=== PATIENT | female | born 1970 | race Caucasian/White ===

== ENCOUNTER 2025-05-31 10:54 | Emergency (ER) | payer BC ==
[~2025-05-31] VITALS: Ht 165.1 cm; Wt 84.0 kg
[2025-05-31] MEDS ORDERED: SEMA0.258 (11:03)
[2025-05-31] MEDS ORDERED: VANC250C12 MT (11:03)
[2025-05-31] MEDS ORDERED: METF-1150 PO (11:03)
[2025-05-31 11:42] LABS: BASOPHILS % 0.4 % (0.0-2.0); EOSINOPHILS % 7.8 % (0.0-5.0); HEMATOCRIT. 37.0 % (36.0-48.0); HEMOGLOBIN. 12.3 g/dL (12.0-16.0); LYMPHOCYTES % 16.7 % (20.0-50.0); MEAN PLATELET VOLUME 8.0 fl (7.4-10.4); MONOCYTES % 3.2 % (2.0-8.0); NEUTROPHILS % 71.9 % (40.0-76.0); PLATELET 384 x1000/uL (130-400); RED BLOOD CELL COUNT 4.33 mill/uL (4.2-5.4); RED CELL DISTRIBUTION WIDTH 13.5 % (11.6-14.6)
[2025-05-31] MEDS: PANTOPRAZOLE SODIUM 40 MG/VIAL IV ONE (11:46)
[2025-05-31] MEDS: ONDANSETRON HCL 4MG/2ML INJ IV ONE (11:46)
[2025-05-31] MEDS: MORPHINE SULFATE 4 MG/ML INJ (FOR IV/IM USE) IV ONE (11:47)
[2025-05-31 11:51] LABS: INR 0.9
[2025-05-31 11:56] LABS: CREATININE 0.7 mg/dL (0.6-1.0); UREA NITROGEN BLOOD 10 mg/dL (9-23)
[2025-05-31] MEDS: SODIUM CHLORIDE 0.9% 1,000 ML IV ONE (11:57)
[2025-05-31 11:58] LABS: ASPARTATE AMINOTRANSFERASE 269 IU/L (<34)
[2025-05-31 11:59] LABS: BILIRUBIN DIRECT 0.2 mg/dL (<=3.0); BILIRUBIN TOTAL 0.6 mg/dL (0.1-1.0); PROTEIN TOTAL 6.8 g/dL (6.0-8.3)
[2025-05-31] MEDS: MORPHINE SULFATE 2 MG/ML INJ (NOT FOR IM USE) IV ONE (12:03)
[2025-05-31] MEDS ORDERED: SUCRALFATE 1G TABLET PO SCH (13:00)
[2025-05-31] MEDS: SUCRALFATE 1G TABLET PO SCH (13:12)
[2025-05-31 13:43] VITALS: TEMP 36.7
[2025-05-31 13:59] LABS: CLARITY URINE CLOUDY (CLEAR); COLOR URINE YELLOW (YELLOW); GLUCOSE URINE NEGATIVE (NEGATIVE); KETONES URINE NEGATIVE (NEGATIVE); LEUKOCYTE ESTERASE URINE 1+ (NEGATIVE); NITRITE URINE POSITIVE (NEGATIVE); OCCULT BLOOD URINE TRACE (NEGATIVE); PH URINE 7.5 (4.5-8.0); PROTEIN URINE NEGATIVE (NEGATIVE); SPECIFIC GRAVITY URINE 1.009 (1.005-1.030); UROBILINOGEN URINE 0.2 E.U./dL (0.2-1.0)
[2025-05-31] MEDS: KETOROLAC 15MG/ML VIAL IV ONE (14:23)
[2025-05-31] MEDS: CEFTRIAXONE 1GM/50ML 50 ML IV ONE (14:24)
[2025-05-31] MEDS ORDERED: CEFP200T13 MT (14:37)
[2025-05-31] MEDS ORDERED: SUCR1TAB30 MT (14:37)
[2025-05-31] MEDS ORDERED: PANT20TA17 MT (14:39)
[2025-05-31 14:48] LABS: SQUAMOUS EPITHELIAL CELL URINE 3+ /lpf (RARE/1+)
[2025-05-31 14:50] LABS: BACTERIA URINE 2+; RBC URINE 0-2 /hpf (0-2)
[2025-05-31] MEDS: DIAZEPAM 2 MG TABLET PO ONE (15:15)
[2025-05-31 15:20] VITALS: BP 112/68; PULSE 78; RESP 19; O2SAT 98
== END 2025-05-31 15:25 | disposition home or self-care (01) ==
LOC: ER 10:54
DX: N39.0 Urinary tract infection, site not specified (principal); K27.9 Peptic ulcer, site unspecified, unspecified as acute or chronic, without hemorrhage or perforation; E11.9 Type 2 diabetes mellitus without complications; E83.42 Hypomagnesemia; Z79.2 Long term (current) use of antibiotics; Z79.899 Other long term (current) drug therapy; Z86.19 Personal history of other infectious and parasitic diseases; Z87.19 Personal history of other diseases of the digestive system; Z90.49 Acquired absence of other specified parts of digestive tract; Z90.710 Acquired absence of both cervix and uterus
CPT/HCPCS: 80076; 80048; 81003; 83690; 83735; 85025; 85610; 87086; 87186; 36415; 74176; 93005; 96365; 96375; 96376; 99285; J0696; J1885; J2405; J2470; J2270 ×2; J7030; Z7610 ×4; A4606